=== PATIENT | male | born 1965 | race African-American/Black ===

== ENCOUNTER 2020-08-26 13:09 | Emergency (ER) | payer MEDICARE, OTHER ==
[~2020-08-26 13:09] MED LIST: Iopamidol 370 76% 100 ML VIAL ONE
[2020-08-26 13:48] LABS: #Eosinphils 0.1 thou/uL (0.0-0.7); #Lymphocytes 1.1 thou/uL (1.20-3.40); #Monocytes 0.4 thou/uL (0.11-0.59); #Neutrophils 1.9 thou/uL (1.40-6.50); %Basophils 1.4 % (0.0-1.0); %Eosinophils 1.8 % (0.0-10.0); %Lymphocytes 31.3 % (21.0-51.0); %Monocytes 10.3 % (0.0-10.0); %Neutrophils 55.2 % (42.0-75.0); Hemoglobin 16.9 g/dL (14.0-18.0); Mean Corpuscular HGB CONC 28.9 g/dL (32.0-36.0); Mean Corpuscular Hemoglobin 25.7 pg (27.0-31.0); Mean Corpuscular Volume 88.8 fL (78.0-98.0); Mean Platelet Volume 9.1 fL (7.4-10.4); Platelet Count 160 thou/uL (130-400); RBC Distribution Width 16.7 % (11.5-14.5); White Blood Cell (WBC) Count 3.5 thou/uL (4.8-10.8)
--- NOTE | 2020-08-26 13:51 | RAD ---
PORTABLE CHEST: 08/26/20 HISTORY: Lower extremity swelling. Shortness of breath. CHF. COMPARISON: 04/23/20. Cardiomegaly with vascular congestion. Mild interstitial congestion. No focal infiltrate or significa nt effusion. IMPRESSION: Congestive changes similar to prior exam. POS: AGW
[2020-08-26 14:10] LABS: ALT (SGPT) 22 U/L (8-55); AST (SGOT) 24 U/L (5-34); Albumin 3.5 g/dL (3.5-5.0); Alkaline Phosphatase 200 U/L (40-110); BUN (Urea Nitrogen) 9 mg/dL (8.4-25.7); Bilirubin, Total 1.5 mg/dL (0.2-1.2); CK (CPK) 47 U/L (30-200); Calc. Creatinine Clearance 0 mL/min (70-130); Calcium 9.2 mg/dL (7.8-10.44); Globulin 3.6 g/dL (2.4-3.5); Glucose 107 mg/dL (70-105); Protein, Total 7.1 g/dL (6.0-8.3)
[2020-08-26 14:12] LABS: Chloride 88 mmol/L (98-107)
[2020-08-26 14:13] LABS: Potassium 4.1 mmol/L (3.5-5.1); Sodium 136 mmol/L (136-145)
[2020-08-26 14:26] LABS: Carbon Dioxide 36 mmol/L (22-29)
[2020-08-26 14:27] LABS: Anion Gap 16 mmol/L (10-20)
--- NOTE | 2020-08-26 15:34 | CT ---
EXAM: CT angiogram of the chest including 3-D rendering: HISTORY: Dyspnea COMPARISON: None FINDINGS: There is adequate opacification of the pulmonary arteries. There is motion artifact typically in the lung bases regions resulting in some areas segmentation. No evidence for aortic aneurysm or dissection. No convincing CT evidence for acute pulmonary embolism. Evidence for bilateral vascular congestion and possibly mild edema. Minimally dilated proximal pulmonary artery segments evidence for some pulmonary hypertension. No evidence for mediastinal mass or adenopathy. Small bilateral pleural effusions/pleural thickening Evidence for coronary arterial vascular calcification. The visualized upper abdomen is unremarkable. IMPRESSION: No convincing CT evidence for acute pulmonary embolism. Evidence for bilateral vascular congestion and possibly mild edema with minimal bilateral pleural thi ckening/effusion with minimally dilated proximal pulmonary artery segments evidence for some pulmonary artery hypertension.
[2020-08-26] MEDS ORDERED: Furosemide 40 MG/4 ML VIAL ONE (15:58)
[2020-08-26] MEDS ORDERED: Enoxaparin Sodium 100 MG/ML SYRINGE ONE (15:58)
[2020-08-26] MEDS ORDERED: Enoxaparin Sodium 40 MG/0.4 ML SYRINGE ONE (16:10)
== END 2020-08-26 17:23 | disposition short-term general hospital (02) ==
LOC: NAV ERS 13:09
DX: R60.0 Localized edema (principal); I11.0 Hypertensive heart disease with heart failure; I50.9 Heart failure, unspecified; I48.92 Unspecified atrial flutter; E78.5 Hyperlipidemia, unspecified; E78.00 Pure hypercholesterolemia, unspecified; F17.210 Nicotine dependence, cigarettes, uncomplicated; Z79.82 Long term (current) use of aspirin; Z79.899 Other long term (current) drug therapy
CPT/HCPCS: 71045; 71275; 80053; 82550; 83605; 83880; 84484; 85025; 85379; 96372; 96374; J1650; J1940; Q9967